=== PATIENT | female | born 1990 | race Two or more races ===

== ENCOUNTER 2016-04-15 13:24 | Emergency (ER) | payer SELFPAY ==
[~2016-04-15] VITALS: Ht 157.5 cm; Wt 72.6 kg
[2016-04-15 13:30] VITALS: BP 115/77
[2016-04-15 15:00] VITALS: BP 122/76
[2016-04-15] MEDS ORDERED: IBUPROFEN400 MG ORAL (15:11)
[2016-04-15 15:21] VITALS: BP 115/77
--- NOTE | 2016-04-15 15:23 | Diagnostic Imaging Report ---
Indications: Fall, right hip injury and pain Technique: 2 views right hip. Findings: Comparison: None No fracture, dislocation, joint space widening , surrounding soft tissue swelling/foreign body/other abnormality, or other acute changes are identified. IMPRESSION: No evidence of acute injury.
--- NOTE | 2016-04-15 15:52 | Emergency Room Report ---
History of Present Illness General Chief Complaint: Multiple Trauma/Fall Source: Medical Record Present Illness HPI The patient is a 25-year-old female presenting for right-sided hip pain after slipping and falling outside of a restaurant today. The pain is described as a 10 out of 10 dull ache it does not radiate from the hip. The patient denies prior injury to the head. The patient states that she is able to walk, but with pain. The patient denies any other symptoms including chest pain, shortness of breath, dizziness, nausea, vomiting, fever, rash, numbness or tingling Allergies: Coded Allergies: ACETAMINOPHEN (Verified Allergy, Unknown, 04/15/16) DIPHENHYDRAMINE (Verified Allergy, Unknown, 04/15/16) HYDROCODONE (Verified Allergy, Unknown, 04/15/16) Patient History Past Medical History: see triage record Pertinent Family History: none Last Menstrual Period: 03/18/2016 Reviewed Nursing Documentation: PMH: Agreed, PSxH: Agreed Nursing Documentation-PMH Past Medical History: No History, Except For History Of Psychiatric Problem: Yes - anxiety and panic attack Review of Systems All Other Systems: negative except mentioned in HPI Physical Exam Vital Signs Date Time Temp Pulse Resp B/P Pulse Ox O2 Delivery O2 Flow Rate FiO2 04/15/16 13:25 97.2 94 18 115/77 99 Room Air Sp02 EP Interpretation: reviewed, normal General Appearance: no apparent distress, alert, GCS 15, non-toxic Head: normocephalic, atraumatic Eyes: bilateral eye PERRL, bilateral eye normal inspection ENT: hearing grossly normal, normal pharynx, no angioedema, normal voice Neck: full range of motion, supple/symm/no masses Musculoskeletal: back normal, no calf tenderness, decreased range of motion - at R hip, tender - TTP over anterior and posterior R hip Neurologic: alert, oriented x3, responsive, motor strength/tone normal, sensory intact, speech normal Psychiatric: judgement/insight normal, memory normal, mood/affect normal, no suicidal/homicidal ideation Reflexes: 3+ bicep (R), 3+ bicep (L), 3+ tricep (R), 3+ tricep (L), 3+ knee (R) , 3+ knee (L) Skin: normal color, no rash, warm/dry, well hydrated Medical Decision Making PA Attestation Dr. Clarke is my supervising physician. Patient management was discussed with my supervising physician Diagnostic Impression: Primary Impression: Contusion, buttock ER Course The patient is a 25-year-old female presenting for right-sided hip pain after slipping and falling outside of a restaurant today. Ddx considered include but not limited to sprain/strain, fracture, contusion Physical exam: Vitals within normal limits. No apparent distress There is tenderness to palpation over the right anterior and posterior lateral hip. No obvious deformity. No rotation of the leg. No leg length discrepancy. No ecchymosis. Limited active range of motion due to to pain. Sensation intact to light touch. No tenderness to palpation over mid spine. No step-offs The patient has rejected pain medication. X-ray of the lumbar spine and hip are unremarkable The patient will be treated for contusion. ER precautions are given and the patient will followup with primary care physician Laboratory Tests Test 04/15/16 13:50 Urine HCG, Qualitative Negative Lab Results Impression negative Other X-Ray Diagnostic Results Other X-Ray Diagnostic Results #1: X-Ray Ordered: R hip Date: Apr 15, 2016 EP Interpretation: Yes Findings: no fractures, no dislocation, no soft tissue swelling Number of Views: 2 PA Scribe Text I am acting as scribe for my supervising physician. My supervising physician's interpretation of the R hip xrays are there are no fractures, dislocations or soft tissue swelling. Other X-Ray Diagnostic Results #2: X-Ray Ordered: L spine Date: Apr 15, 2016 EP Interpretation: Yes Findings: no fractures, no dislocation, no soft tissue swelling Number of Views: 3 PA Scribe Text I am acting as scribe for my supervising physician. My supervising physician's interpretation of the L spine xrays are there are no fractures, dislocations or soft tissue swelling. Last Vital Signs Date Time Temp Pulse Resp B/P Pulse Ox O2 Delivery O2 Flow Rate FiO2 04/15/16 15:21 97.2 88 18 115/77 99 Room Air Status: improved Disposition: HOME, SELF-CARE Condition: Stable Scripts Ibuprofen* (MOTRIN*) 400 Mg Tablet 400 MG ORAL Q8H, #30 TAB 0 Refills Prov: TATY GAMA 04/15/16 Departure Forms: Return to Work Return to Work Date: Apr 18, 2016 Patient Instructions: Contusion Additional Instructions: I discussed my findings with the patient. All questions and concerns have been answered. Treatment and medication compliance have been addressed. I advised the patient that they need to follow up with PMD in 3-5 days. Return to ED if pain remains or worsens, numbness or tingling occurs, new rash is noticed, fever is noticed, or if needed for any reason. Patient verbalized understanding of discharge instructions. TATY GAMA Apr 15, 2016 15:52
--- NOTE | 2016-04-15 16:20 | Diagnostic Imaging Report ---
Indications: Fall, injury, low back pain. Technique: 3 views of the lumbar spine Findings: Comparison: None Vertebral alignment is intact. No fracture, lytic destruction, or other acute changes are demonstrated. No degenerative changes, deformity, or other chronic changes are demonstrated. Ovoid soft tissue opacity overlies lower left paraspinous region. IMPRESSION: No evidence of acute lumbar injury Suggestion of colostomy
== END 2016-04-15 15:22 | disposition home or self-care (01) ==
LOC: EDBD 13:24 → EMR 13:56
DX: S30.0XXA Contusion of lower back and pelvis, initial encounter (principal); W01.0XXA Fall on same level from slipping, tripping and stumbling without subsequent striking against object, initial encounter; Y92.511 Restaurant or cafe as the place of occurrence of the external cause; Z88.6 Allergy status to analgesic agent
CPT/HCPCS: 72020; 81025; 99284